=== PATIENT | female | born 1960 | race Hispanic/Latino ===

== ENCOUNTER → 2021-01-29 14:41 | Outpatient (CLI) | payer BC, SELFPAY | PROVIDERS: Visit Provider Physician Assistant | DX: N30.00 Acute cystitis without hematuria (principal) | CPT/HCPCS: 87086 ==

== ENCOUNTER → 2021-04-28 16:25 | Outpatient (CLI) | payer BC, SELFPAY | PROVIDERS: PCP Registered Nurse; Referring Provider Registered Nurse; Visit Provider Registered Nurse | DX: N39.0 Urinary tract infection, site not specified (principal); R10.2 Pelvic and perineal pain | CPT/HCPCS: 87086 ==

== ENCOUNTER → 2021-05-12 08:28 | Outpatient (CLI) | payer BC, SELFPAY ==
[2021-05-12 09:40] LABS: Add Manual Diff / Slide Review NO; Basophils Absolute Auto 0 /uL (0-100); Basophils Percent Auto 1.2 % (0-2); Eosinophils Absolute Auto 100 /uL (0-450); Eosinophils Percent Auto 3.4 % (2-4); Hematocrit 38.8 % (36-46); Hemoglobin 13.2 g/dL (12.0-16.0); Lymphocytes Absolute Auto 1900 /uL (1100-4500); Lymphocytes Percent Auto 47.2 % (25-40); Mean Corpuscular Hemoglobin 31.6 PG (26-34); Mean Corpuscular Volume 92.7 fL (80-100); Monocytes Absolute Auto 300 /uL (0-900); Monocytes Percent Auto 6.6 % (3-14); Neutrophils Absolute Auto 1700 /uL (1500-7000); Neutrophils Percent Auto 41.6 % (50-75); Platelet Count 241 X10^3/uL (150-400); Red Blood Cell Count 4.18 X10^6/uL (4.0-5.2); Red Cell Distribution Width 13.3 % (11.6-14.8)
[2021-05-12 09:54] LABS: Alanine Aminotransferase 41 IU/L (<35); Albumin 4.1 g/dL (3.5-5.0); Albumin Globulin Ratio 1.5 (1.0-2.8); Alkaline Phosphatase 67 U/L (38-126); Aspartate Aminotransferase 40 IU/L (14-36); BUN Creatinine Ratio 14.1 (6-22); Bilirubin Total 0.3 mg/dL (0.2-1.3); Blood Urea Nitrogen 10 mg/dL (7-17); Calcium 9.5 mg/dL (8.4-10.2); Carbon Dioxide 30 mmol/L (22-32); Chloride 105 mmol/L (98-107); Cholesterol 241 mg/dL (140-199); Estimated Glomerular Filt Rate > 60.0 mL/min (>60); Globulin 2.8 g/dL (1.7-4.1); Glucose 88 mg/dL (80-110); HDL Cholesterol 83 mg/dL (40-60); HEMOLYSIS < 15 (0-50); LDL Cholesterol Calculated 147 mg/dL (<100); Potassium 4.1 mmol/L (3.4-5.1); Sodium 139 mmol/L (137-145); Total Protein 6.9 g/dL (6.3-8.2); Triglycerides 56 mg/dL (35-150)
[2021-05-12 11:45] LABS: Appearance Urine UA CLEAR; Bilirubin Urine UA NEGATIVE (NEGATIVE); Color Urine UA YELLOW; Glucose Urine UA NEGATIVE (Negative); Ketones Urine UA NEGATIVE (NEGATIVE); Leukocyte Esterase Urine UA NEGATIVE (NEGATIVE); Nitrite Urine UA NEGATIVE (Negative); Occult Blood Urine UA NEGATIVE (Negative); Protein Urine UA NEGATIVE (Negative); Specific Gravity Urine UA 1.015 (1.000-1.035); Urobilinogen Urine UA 0.2 E.U./dL (0.2)
[2021-05-12 11:48] LABS: pH Urine UA 7.5 (4.5-8.0)
== END ==
PROVIDERS: PCP Registered Nurse; Referring Provider Registered Nurse; Visit Provider Registered Nurse
DX: Z00.00 Encounter for general adult medical examination without abnormal findings (principal); E78.5 Hyperlipidemia, unspecified; Z87.440 Personal history of urinary (tract) infections; R10.2 Pelvic and perineal pain; N30.00 Acute cystitis without hematuria
CPT/HCPCS: 36415; 80053; 80061; 81003; 85025

== ENCOUNTER → 2021-10-16 10:59 | Outpatient (CLI) | payer BC, SELFPAY ==
--- NOTE | 2021-10-16 | DI.US.S_ITS ---
PROCEDURE: US PELVIC COMPLETE INDICATIONS: Postmenopausal bleeding TECHNIQUE: Real-time scanning was performed of the pelvic organs, with image documentation. Additional endovaginal scanning was necessary due to incomplete visualization of the adnexal and endometrial structures by transabdominal scanning. COMPARISON: None. FINDINGS: Uterus: Uterus is normal in size at 6.1 x 2.5 cm. The myometrium is homogeneous. The endometrium measures 2.9 mm combined thickness. Endometrial mass slightly irregular margins without evidence of polyp. Ovaries: The right ovary measures 1.7 x 1.2 x 1.7 cm. The left ovary measures 1.7 x 1.0 x 1.4 cm. The ovaries have a normal sonographic appearance. 0.9 x 0.8 x 1.0 centimeter simple right adnexal cyst. Less than 12 follicles can be seen in each ovary. No adnexal masses are seen. Other: No pathologic free abdominal or pelvic fluid. IMPRESSION: 1. No endometrial thickening or endometrial mass. Endometrium has slightly irregular margins without discrete polyp. 2. Left ovary sonographically normal. 3. 0.9 x 0.8 x 1.0 centimeter right ovarian simple cyst. Dictated by: Alyce Raymond MD, PhD on 10/23/2021 at 15:39 on 10/23/2021 at 15:25 We strive to produce accurate, complete, and clear reports of imaging services. To assist us in improving patient care, this report was composed using standard report templates and voice recognition software. Therefore, it may contain abnormal punctuation, misrecognitions, insertions and/or omissions. Occasional wrong-word or sound-alike substitutions may occur. Though we review the report and make efforts to correct it, we do recommend that the report be read carefully in proper context to recognize any text inaccuracies. Approved by: Alyce Raymond MD, PhD on 10/23/2021 at 15:39
== END ==
PROVIDERS: PCP Student in an Organized Health Care Education/Training Program; Referring Provider Student in an Organized Health Care Education/Training Program; Visit Provider Student in an Organized Health Care Education/Training Program
DX: N95.0 Postmenopausal bleeding (principal); N83.291 Other ovarian cyst, right side
CPT/HCPCS: 76830; 76856

== ENCOUNTER → 2022-01-11 16:16 | Outpatient (CLI) | payer OTHER, SELFPAY ==
[2022-01-11 17:50] LABS: COVID19 -Nasal RAPID Negative (Negative)
== END ==
PROVIDERS: PCP Student in an Organized Health Care Education/Training Program; Visit Provider Obstetrics & Gynecology
DX: Z01.812 Encounter for preprocedural laboratory examination (principal); Z20.822 Contact with and (suspected) exposure to COVID-19
CPT/HCPCS: 87635

== ENCOUNTER 2022-01-12 08:38 | Day surgery (SDC) | payer OTHER, SELFPAY ==
[2022-01-09 10:25] VITALS: BMI 28.5
--- NOTE | 2022-01-12 | PATH_ITS ---
[facility] Accession Number: [id number] . 01 Material submitted: . PART A: endometrium - ENDOMETRIAL POLYP PART B: endometrium - ENDOMETRIAL CURETTINGS . 02 Diagnosis: A. Endometrial Polyp, Excision: Consistent with endometrial polyp. Negative for atypical hyperplasia or malignancy. . B. Endometrium, Curettage: Scant superficial strips of endocervical, endometrial and squamous epithelium; please see comment. No evidence of atypical hyperplasia or malignancy. [facility] 01/17/2022 1735 Local . 02 Comment: B. The histologic findings are suggestive of endometrial atrophy. That said, if clinical suspicion for an endometrial neoplasm persists, a repeat biopsy may be contributory. . 02 Electronically signed: . Fidel Love MD, PhD, Pathologist NPI- [id number] . 01 Gross description: . Part A: ENDOMETRIAL POLYP: Received in formalin is 1 fragment(s) of pichardo, soft tissue measuring 0.6 x 0.5 x 0.3 cm submitted entirely in 1 cassette(s) Part B: ENDOMETRIAL CURETTINGS: Received in formalin are minute fragments of mucoid and hemorrhagic material measuring 0.1 x 0.1 x 0.1 cm in aggregate. Submitted in toto in 1 cassette. /KIRSTEN 01/16/2022 2225 Local . 02 Pathologist provided ICD-10: N95.0 . 02 CPT . 539644, [id number] Specimen Comment: A courtesy copy of this report has been sent to [phone] Performed at: 01 [facility] [address] [facility], [place], [place] [id number] MD Demetrio Morelos MD Phone: [phone] Performed at: 02 [facility] [place] [id number] [place] [id number] MD Karolina Nayak MD Phone: [phone]
--- NOTE | 2022-01-12 09:03 | PM.PREOP ---
Pre-operative Note COVID-19 COVID-19 status: Negative Result date/Date tested (Pos, Neg/Pending): 01/11/22 Criteria for continued procedure: Non-surgical alternatives not available or appropriate per current SOC Interval Note History & Physical reviewed/Exam performed by Physician: Yes Changes to H&P: No
[2022-01-12 09:06] VITALS: BP 141/72; PULSE 48; RESP 14; TEMP 36.5; O2SAT 99
[2022-01-12 09:08] VITALS: BMI 28.5
--- NOTE | 2022-01-12 09:13 | SUR.OPER ---
Lithotomy on padded OR bed, head on pillow, arms secured on padded arm boards at <90 degrees abduction. Legs secured in padded yellow fins stirrups.
[2022-01-12] MEDS: LACTATED RINGERS 1,000 ML 100 ML IV (09:17)
[2022-01-12 10:19] VITALS: BP 83/44; PULSE 47; RESP 10; TEMP 36.3; O2SAT 95
--- NOTE | 2022-01-12 10:22 | SUR.PHASEI ---
Received to PACU after general anesthesia. Oral airway in place. Brief chin lift required. O2 sats maintained. Report from Dr Balderas and circulating RN. Oral airway removed at 1020.
[2022-01-12 10:24] VITALS: BP 113/59; PULSE 57; RESP 10; O2SAT 97
[2022-01-12 10:29] VITALS: BP 127/67; PULSE 59; RESP 16; O2SAT 98
[2022-01-12 10:34] VITALS: BP 135/74; PULSE 67; RESP 16; TEMP 36.2; O2SAT 99
--- NOTE | 2022-01-12 10:41 | PM.GYNOP.1 ---
Operative Date/Time/Diagnoses Date of procedure: 01/12/22 Time of procedure: 09:45 Pre-op diagnosis: abnormal uterine bleeding Post-op diagnosis: same Procedure & Clinicians Procedure: Procedures Operation Date: 01/12/22 09:45 Actual Procedure Side Surgeon p Diagnostic Hysteroscopy W/D&C Valeria Aviles MD Indications: persistent postmenopausal bleeding Surgeon: Valeria Aviles Anesthesia Type: Sedation Operative Notes Findings: normal vulva, vagina, and cervix. Small polyp on posterior wall of endometrial cavity, endometrium appears otherwise atrophic. Specimen(s): endometrial curettings and endometrial polyp Blood products transfused: none Procedure in detail: After informed consent was obtained, the patient was taken to the operating room where IV sedation was obtained. She was prepped and draped in the usual sterile fashion in the dorsal lithotomy position, with the bladder drained via straight catheterization. A speculum was placed in the patient's vagina and the cervix visualized and grasped with a single toothed tenaculum. Hegar dilators were used to dilate the cervix to 7mm with gentle pressure, and the diagnostic hysteroscope was advanced through the cervix with gentle pressure. Sterile saline was infused and used to dilate the endometrial cavity, and a small polyp was noted on the posterior wall of the cavity. The hysteroscope was removed, this polyp was removed with polyp forceps gently advanced into the endometrial cavity, and the hysteroscope replaced to confirm that the polyp was removed in its entirety. The hysteroscope was again removed and a gentle curettage performed. The tenaculum was removed with spontaneous hemostasis noted. The speculum was removed from the vagina, and the patient tolerated the procedure well and was taken to PACU in stable condition. During timeout, it was noted that the patient had received a dose of 2g of Ancef during positioning and prep that had not been ordered. The patient has no drug allergies and tolerated the medication well, though it was not indicated. This was disclosed to the patient prior to discharge. IVF: 400ccs LR UOP: 200ccs via straight cath Fluid deficit: 350ccs NS EBL: minimal Complications: none Post-operative Condition: stable Disposition: PACU Plan for aftercare: Routine postop care
[2022-01-12 10:45] VITALS: BP 137/74; PULSE 55; RESP 16; TEMP 36.1; O2SAT 100
--- NOTE | 2022-01-12 11:09 | SUR.PHASEII ---
Pt had no drainage on her pad at discharge and Dr. Aviles in to see pt. Pt to be discharged with .
== END 2022-01-12 11:13 | disposition home or self-care (01) ==
PROVIDERS: PCP Student in an Organized Health Care Education/Training Program; Referring Provider Obstetrics & Gynecology; Visit Provider Obstetrics & Gynecology
PROC: 0UDB8ZZ Extraction of Endometrium, Via Natural or Artificial Opening Endoscopic (ICD-10-PCS; CPT 58558; principal; 2022-01-12 09:45)
DX: N84.0 Polyp of corpus uteri (principal)
CPT/HCPCS: 58558; 82962; J1100; J1885; J2405; J2704; J3010

== ENCOUNTER → 2022-01-22 09:29 | Outpatient (CLI) | payer OTHER, SELFPAY ==
--- NOTE | 2022-01-22 | DI.MG.S_ITS ---
UNILATERAL RIGHT DIGITAL DIAGNOSTIC MAMMOGRAM 3D/2D WITH ADDITIONAL VIEWS: 01/22/2022 CLINICAL: Additional evaluation requested from prior study. Comparison is made to exam dated: 11/09/2021 mammogram - [facility]. The tissue of right breast is heterogeneously dense. This may lower the sensitivity of mammography. There is an oval focal asymmetry in the right breast at 12 o'clock in the retroareolar region. This is less prominent and decreased in size and may represent ductal ectasia. There also is a 0.9 cm oval equal density mass with coarse calcifications in the right breast at 3 o'clock posterior depth. This is seen in additional views. No other significant masses or calcifications are seen in the breast. IMPRESSION: INCOMPLETE: NEEDS ADDITIONAL IMAGING EVALUATION The focal asymmetry in the right breast at 12 o'clock in the retroareolar regionmay represent ductal ectasia but remains indeterminate. An ultrasound is recommended. The 0.9 cm oval equal density mass in the right breast at 3 o'clock posterior depth resembles a degenerating fibroadenoma and is indeterminate. An ultrasound is recommended. Findings and recommendations were conveyed to the patient during today's evaluation. This exam was interpreted at Station ID: [id number]. NOTE: For mammograms, a report in lay terms will be sent to the patient. Approximately 15% of breast malignancies will not be visualized mammographically. In the management of a palpable breast mass, a negative mammogram must not discourage biopsy of a clinically suspicious lesion. Electronically Signed By: Abiodun Howell M.D. aty/:01/22/2022 10:52:07 ACR BI-RADS Category 0: Incomplete [id number]
== END ==
PROVIDERS: PCP Student in an Organized Health Care Education/Training Program; Referring Provider Student in an Organized Health Care Education/Training Program; Visit Provider Student in an Organized Health Care Education/Training Program
DX: R92.8 Other abnormal and inconclusive findings on diagnostic imaging of breast (principal); N64.89 Other specified disorders of breast
CPT/HCPCS: 77065; G0279

== ENCOUNTER → 2022-02-14 13:35 | Outpatient (CLI) | payer OTHER, SELFPAY ==
--- NOTE | 2022-02-14 | DI.US.S_ITS ---
LIMITED ULTRASOUND OF RIGHT BREAST: 02/14/2022 CLINICAL: Patient returns today to evaluate a focal asymmetry in the right breast. Comparison is made to exams dated: 01/22/2022 mammogram - [facility], 11/09/2021 mammogram - [facility], 11/01/2020 mammogram, and 01/26/2019 mammogram - [facility]. Color flow ultrasound of the right breast 3 o'clock and 12 o'clock regions was performed. Cavazos scale images of the real-time examination were reviewed. There is a benign 1.1 cm x 1 cm x 0.6 cm oval mass with a circumscribed margin in the right breast at 3 o'clock posterior depth 9 cm from the nipple. This oval mass is hypoechoic. This correlates with mammography findings. There are related calcifications. Since the screening exam from 11/09/2021, prior exams have become available for comparison dated 11/01/2020 and 01/26/2019. This mass is stable in size dating back to the prior exam from 2018, and is therefore considered benign. There also is a benign dilated duct in the right breast at 12 o'clock in the retroareolar region. This correlates with mammography findings. Color flow imaging demonstrates that there is no vascularity present. This finding does not appear significantly changed mammographically dating back to the prior exam from 2019. IMPRESSION: BENIGN There is no sonographic evidence of malignancy. The 1.1 cm x 1 cm x 0.6 cm oval mass in the right breast at 3 o'clock posterior depth most likely is a fibroadenoma and is benign. The dilated duct in the right breast at 12 o'clock in the retroareolar region is consistent with duct ectasia and is benign. Return to annual mammogram screening schedule is recommended. This exam was interpreted at Station ID: [id number]. Electronically Signed By: Jass back/alexandrea:02/14/2022 16:27:29 letter sent: Normal Exam Ultrasound BI-RADS: 2 Benign
== END ==
PROVIDERS: PCP Student in an Organized Health Care Education/Training Program; Referring Provider Student in an Organized Health Care Education/Training Program; Visit Provider Student in an Organized Health Care Education/Training Program
DX: R92.8 Other abnormal and inconclusive findings on diagnostic imaging of breast (principal); N63.15 Unspecified lump in the right breast, overlapping quadrants
CPT/HCPCS: 76642

== ENCOUNTER → 2022-03-28 13:21 | Outpatient (CLI) | payer OTHER, SELFPAY ==
[2022-03-28 14:37] LABS: COVID19 -Nasal RAPID Negative (Negative)
== END ==
PROVIDERS: PCP Student in an Organized Health Care Education/Training Program; Visit Provider Family Medicine Sleep Medicine
DX: Z20.822 Contact with and (suspected) exposure to COVID-19 (principal)
CPT/HCPCS: 87635; C9803

== ENCOUNTER → 2022-03-30 12:52 | Outpatient (CLI) | payer OTHER, SELFPAY ==
[2022-03-30 14:08] LABS: Add Manual Diff / Slide Review NO; Basophils Absolute Auto 100 /uL (0-100); Basophils Percent Auto 1.2 % (0-2); Eosinophils Absolute Auto 0 /uL (0-450); Hemoglobin 13.6 g/dL (12.0-16.0); Lymphocytes Absolute Auto 2500 /uL (1100-4500); Lymphocytes Percent Auto 54.1 % (25-40); Mean Corpuscular HGB Conc 33.9 % (30-36); Mean Corpuscular Hemoglobin 31.7 PG (26-34); Mean Corpuscular Volume 93.6 fL (80-100); Monocytes Absolute Auto 300 /uL (0-900); Monocytes Percent Auto 6.7 % (3-14); Neutrophils Absolute Auto 1700 /uL (1500-7000); Platelet Count 259 X10^3/uL (150-400); Red Blood Cell Count 4.28 X10^6/uL (4.0-5.2); Red Cell Distribution Width 12.9 % (11.6-14.8); White Blood Cell Count 4.6 X10^3/uL (4.5-11.0)
[2022-03-30 14:29] LABS: Alanine Aminotransferase 40 IU/L (<35); Albumin 4.7 g/dL (3.5-5.0); Albumin Globulin Ratio 1.5 (1.0-2.8); Alkaline Phosphatase 65 U/L (38-126); Aspartate Aminotransferase 39 IU/L (14-36); BUN Creatinine Ratio 12.9 (6-22); Bilirubin Total 0.6 mg/dL (0.2-1.3); Blood Urea Nitrogen 9 mg/dL (7-17); Calcium 9.5 mg/dL (8.4-10.2); Carbon Dioxide 28 mmol/L (22-32); Chloride 105 mmol/L (98-107); Cholesterol 206 mg/dL (140-199); Estimated Glomerular Filt Rate > 60 mL/min (>60); Globulin 3.1 g/dL (1.7-4.1); HDL Cholesterol 100 mg/dL (40-60); HEMOLYSIS < 15 (0-50); LDL Cholesterol Calculated 90 mg/dL (<100); Potassium 3.7 mmol/L (3.4-5.1); Sodium 140 mmol/L (137-145); Total Protein 7.8 g/dL (6.3-8.2); Triglycerides 81 mg/dL (35-150)
[2022-03-30 16:22] LABS: Glucose 91 mg/dL (80-110)
[2022-04-03 05:05] LABS: Hep C Virus Ab w/Reflex Quant NEGATIVE s/c (NEGATIVE)
== END ==
PROVIDERS: PCP Student in an Organized Health Care Education/Training Program; Referring Provider Student in an Organized Health Care Education/Training Program; Visit Provider Student in an Organized Health Care Education/Training Program
DX: E66.9 Obesity, unspecified (principal); N95.0 Postmenopausal bleeding; Z11.59 Encounter for screening for other viral diseases; E78.5 Hyperlipidemia, unspecified; Z13.29 Encounter for screening for other suspected endocrine disorder
CPT/HCPCS: 36415; 80053; 80061; 84443; 85025; 86803

== ENCOUNTER 2022-03-30 13:10 | Day surgery (SDC) | payer OTHER, SELFPAY ==
--- NOTE | 2022-03-30 12:25 | P.HP_ITS ---
History of Present Illness History of Present Illness Date Patient Seen: 03/30/22 Chief complaint: SCREENING COLONOSCOPY Narrative: 62 year old female comes in today for consideration of a screening colonoscopy. She has had one previous colonoscopy, records not available at time of dicta tion, reportedly, had benign polyps. There have been no lower GI symptoms suggesting disease such as change in bowel habits, bleeding, abdominal pain or anemia. There's been no family history of colon cancer or colon polyps. Overall health issues have been stable, including no major cardiac events for at least 6 weeks. PCP: Dr. 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, descent. Has one child, son, he lives in [facility], is Upper Sor[place]. Grandson lives in [place]. Enjoys exercise and volunteering. Recently lost her father at age 94 on 07/11/21. 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 Mandaen telly. Patient History Medical History (Updated 01/12/22 @ 08:54 by Corie Antoine RN) delivery delivered COVID-19 virus infection (~10/2020) Pelvic pain Recent urinary tract infection UTI (urinary tract infection) Surgical History (Updated 01/12/22 @ 09:16 by Corie Antoine RN) H/O left knee surgery (~10/2021) Hx of colonoscopy Family & Social History Social History: household members spouse Tobacco & Substance use: Tobacco type cigarettes Smoking Status Former smoker alcohol intake current alcohol intake frequency a few times a week Substance Use Type does not use Meds Home Medications and Allergies Home Medications Medication Instructions Recorded Confirmed Type rosuvastatin 10 mg tablet 10 mg PO DAILY 01/11/22 03/30/22 History acetaminophen 500 mg tablet 1,000 mg PO Q6H PRN 01/12/22 03/30/22 History ibuprofen 200 mg capsule 600 mg PO Q6H PRN 01/12/22 03/30/22 History Allergies Allergy/AdvReac Type Severity Reaction Status Date / Time No Known Drug Allergies Allergy Verified 01/12/22 08:55 Review of Systems Review of Systems Narrative: All remaining ROS were reviewed and negative except as addressed. Exam Narrative Exam Narrative: GENERAL: Alert and oriented, appearing stated age and in no acute distress. HEENT: Head normocephalic/atraumatic. Extraocular movements intact. LUNGS: Clear to ausculation bilaterally, no wheezes, rhonchi or rales. CV: Normal S1 and S2 with regular rate and rhythm, no audible murmurs, rubs or gallops. ABDOMEN: Soft, non-tender, non-distended, no organomegaly. Positive bowel sounds. EXTREMITIES: No clubbing, cyanosis, or edema. NEURO: Cranial nerves II through XII grossly intact, no focal deficits. PSYCH: Alert and oriented x 3. SKIN: No concerning lesions. Assessment & Plan Assessment & Plan narrative: 1. History of colon polyps 2. Screening for colon cancer Plan for colonoscopy. The nature and character of the procedure as well as anticipated results were discussed. The possibility of not completing the procedure was also discussed. Possible complications including aspiration pneumonia, bleeding, perforation and reaction to medications either for sedation or preparation and missed lesions were discussed. Questions were answered and proceeding to the colonoscopy was elected. Informed consent signed.
--- NOTE | 2022-03-30 12:28 | PM.OP.COLON ---
Procedure Notes SCOAP/Timeout: 2:59 p.m. Procedure in detail: ENDOSCOPIST: Arianna Dia MD Sedation RN: Tatianna De Souza RN Anesthesiologist: Dr. Nion Sedation start time: 3:02 p.m. Sedation end time: 3:49 p.m. PROCEDURE: Colonoscopy INDICATIONS: 1. History of colon polyps 2. Screening for colon cancer MEDICATION: Levsin 0.125 mg sublingual given pre-op. 3 mg of Versed and 75 mcg fentanyl was then given but the patient was not able to achieve an adequate level of sedation and her heart rate fell to 37. Anesthesia was then called into the room and they gave 0.4 mg of glycopyrrolate with excellent effect. Procedure was then continued with propofol sedation. ASA CLASS: 2 CECAL WITHDRAWAL TIME: 6 minutes COMPLICATIONS: None. EXTENT OF PROCEDURE: Cecum. QUALITY OF PREP: Good with portions of liquid stool. PROCEDURE: Prior to insertion of the colonoscope, a digital rectal examination was accomplished with circumferential palpation of the distal rectal mucosa without significant findings being noted. The high-definition colonoscope was passed into the rectum in the usual fashion and advanced over to the cecum without difficulty. The ileocecal valve, appendiceal stoma, and medial wall all could be inspected and no abnormalities were seen. ASCENDING COLON: As the colonoscope was withdrawn, care was taken to expose and inspect the haustral folds and no abnormalities were seen. HEPATIC FLEXURE: Normal, no polyps, diverticula or other abnormalities. TRANSVERSE COLON: Normal, no polyps, diverticula or other abnormalities. DESCENDING COLON: Normal, no polyps, diverticula or other abnormalities. SIGMOID COLON: Normal, no polyps, diverticula or other abnormalities. RECTUM: Normal. J maneuver was produced. There was no significant perianal disease. The J maneuver was broken. The remainder of the rectum was inspected and there was no external hemorrhoid disease. The scope was withdrawn. IMPRESSION: 1. Normal colonoscopy PLAN: 1. Repeat colonoscopy in 5 years secondary to history of colon polyps. The possibility of a missed lesion including a malignancy has been discussed with the patient previously. Potential alarm symptoms have been discussed and should be reported immediately.
[2022-03-30 13:27] VITALS: BP 118/78; PULSE 60; RESP 16; TEMP 37.2; O2SAT 99; BMI 28.3
[2022-03-30] MEDS: LACTATED RINGERS 1,000 ML 200 ML IV (13:34)
[2022-03-30] MEDS: HYOSCYAMINE 0.125 MG TABLET PO (13:35)
--- NOTE | 2022-03-30 15:24 | PC.NURSE ---
colonoscopy with sedation, see flowsheet. Converted to MAC with Dr. Nino at 1522 due to pt having bradycardia after sedation. Dr. Dia requested anesthesia.
[2022-03-30] MEDS: MIDAZOLAM 5 MG/5 ML VIAL 3 MG IV (15:27)
[2022-03-30] MEDS: fentaNYL 250 MCG/5 ML INJ 75 MCG IV ×2 (15:28→15:52)
[2022-03-30 16:07] VITALS: BP 130/76; PULSE 89; RESP 16; TEMP 35.9; O2SAT 99
[2022-03-30 16:12] VITALS: BP 130/84; PULSE 72; RESP 14; O2SAT 97
[2022-03-30 16:17] VITALS: BP 148/84; PULSE 93; RESP 16; O2SAT 99
[2022-03-30 16:22] VITALS: BP 142/79; PULSE 71; RESP 16; TEMP 36; O2SAT 99
== END 2022-03-30 16:37 | disposition home or self-care (01) ==
PROVIDERS: PCP Student in an Organized Health Care Education/Training Program; Referring Provider Student in an Organized Health Care Education/Training Program; Visit Provider Student in an Organized Health Care Education/Training Program
PROC: 0DJD8ZZ Inspection of Lower Intestinal Tract, Via Natural or Artificial Opening Endoscopic (ICD-10-PCS; CPT 45378; principal; 2022-03-30 14:30)
DX: Z12.11 Encounter for screening for malignant neoplasm of colon (principal); Z86.010 Personal history of colon polyps; E66.9 Obesity, unspecified; N95.0 Postmenopausal bleeding; Z11.59 Encounter for screening for other viral diseases; E78.5 Hyperlipidemia, unspecified; Z13.29 Encounter for screening for other suspected endocrine disorder
CPT/HCPCS: 45378; 36415; 80053; 80061; 84443; 85025; 86803; J2250; J2704; J3010

== ENCOUNTER → 2022-09-20 19:15 | Outpatient (ROUT) | payer BC, SELFPAY ==
[2022-09-20 20:02] LABS: Influenza A - CEPHEID Flu A NEGATIVE (NEGATIVE); Influenza B - CEPHEID Flu B NEGATIVE (NEGATIVE); Respiratory Syncytial Virus Negative (Negative)
[2022-09-20 20:16] LABS: COVID-19 CEPHEID 4-PLEX PCR Negative (Negative)
== END ==
PROVIDERS: PCP Student in an Organized Health Care Education/Training Program; Visit Provider Registered Nurse
DX: R05.1 Acute cough (principal)
CPT/HCPCS: 0241U

== ENCOUNTER → 2023-12-06 17:38 | Outpatient (CLI) | payer OTHER, SELFPAY ==
--- NOTE | 2023-12-06 17:40 | DI.MG.S_ITS ---
BILATERAL DIGITAL SCREENING MAMMOGRAM 3D/2D WITH CAD: 12/06/2023 CLINICAL: Routine screening. Family history of breast cancer. Comparison is made to exams dated: 02/14/2022 ultrasound, 01/22/2022 mammogram - [facility], 11/09/2021 mammogram - [facility], 11/01/2020 mammogram, and 01/26/2019 mammogram - [facility]. Both breasts are heterogeneously dense, which may obscure small masses (category c / 51-75% glandular tissue). Current study was also evaluated with a Computer Aided Detection (CAD) system. There are biopsy clips in the left breast. No significant masses, calcifications, or other findings are seen in either breast. There has been no significant interval change. IMPRESSION: BENIGN There is no mammographic evidence of malignancy. A 1 year screening mammogram is recommended. Based on the Tyrer Cuzick model (a risk assessment model) the patient's lifetime risk is 17.8% and her 10 year risk is 7.9%. According to the ACR, ACS, and NCCN guidelines, an annual breast MRI exam along with mammogram is recommended if the patient's lifetime risk is 20% or greater. This exam was interpreted at Station ID: [id number]. NOTE: For mammograms, a report in lay terms will be sent to the patient. Approximately 15% of breast malignancies will not be visualized mammographically. In the management of a palpable breast mass, a negative mammogram must not discourage biopsy of a clinically suspicious lesion. Electronically Signed By: Crescencio combs/alexandrea:12/09/2023 09:18:07 letter sent: Normal Exam ACR BI-RADS Category 2: Benign Finding(s) 3342F
== END ==
LOC: MAMMO 17:40
PROVIDERS: PCP Student in an Organized Health Care Education/Training Program; Referring Provider Registered Nurse; Visit Provider Registered Nurse
DX: Z12.31 Encounter for screening mammogram for malignant neoplasm of breast (principal); Z80.3 Family history of malignant neoplasm of breast; R92.333 Mammographic heterogeneous density, bilateral breasts
CPT/HCPCS: 77063; 77067

== ENCOUNTER → 2024-02-04 12:51 | Outpatient (CLI) | payer OTHER, SELFPAY ==
--- NOTE | 2024-02-04 12:53 | DI.RAD.S_ITS ---
PROCEDURE: XR FOOT LT 2V INDICATIONS: FOOT INJURY, LEFT, INITIAL ENCOUNTER TECHNIQUE: 2 views of the foot were acquired. COMPARISON: None. FINDINGS: Bones: Mild 1st MTP joint space narrowing. No displaced fracture or dislocation. Soft tissues: Possible subcutaneous/dystrophic calcifications seen anterior to the tibia on lateral view. IMPRESSION: No acute radiographic abnormality. If there is high concern for further derangement, consider MRI evaluation. Dictated by: Crescencio Santiago M.D. on 02/04/2024 at 15:29 Approved by: Crescencio Santiago M.D. on 02/04/2024 at 15:30
== END ==
PROVIDERS: PCP Registered Nurse; Referring Provider Registered Nurse; Visit Provider Registered Nurse
DX: S99.922A Unspecified injury of left foot, initial encounter (principal); X58.XXXA Exposure to other specified factors, initial encounter
CPT/HCPCS: 73620

== ENCOUNTER 2024-03-13 16:15 | Emergency (ER) | payer OTHER, SELFPAY ==
[2024-03-13] VITALS (13 sets, daily range): BP systolic 134–147; BP diastolic 62–67; PULSE 51–59; RESP 9–33; TEMP 36.7; O2SAT 96–100; BMI 28.0
--- NOTE | 2024-03-13 16:36 | DI.RAD.S_ITS ---
PROCEDURE: XR CHEST 1V INDICATIONS: chest pain TECHNIQUE: One view of the chest was acquired. COMPARISON: None. FINDINGS: Surgical changes and devices: None. Lungs and pleura: Lungs are clear. No pleural effusions or pneumothorax. Mediastinum: Mediastinal contours appear normal. Heart size is normal. Bones and chest wall: No suspicious bony lesions. Overlying soft tissues appear unremarkable. IMPRESSION: No acute cardiopulmonary abnormality is seen. Dictated by: Victoriano Barron M.D. on 03/13/2024 at 18:46 Approved by: Victoriano Barron M.D. on 03/13/2024 at 18:46
[2024-03-13 16:46] LABS: Add Manual Diff / Slide Review NO; Basophils Absolute Auto 100 /uL (0-100); Eosinophils Absolute Auto 100 /uL (0-450); Eosinophils Percent Auto 1.8 % (2-4); Hematocrit 39.2 % (36-46); Hemoglobin 13.2 g/dL (12.0-16.0); Lymphocytes Absolute Auto 2900 /uL (1100-4500); Lymphocytes Percent Auto 46.5 % (25-40); Mean Corpuscular HGB Conc 33.8 % (30-36); Mean Corpuscular Hemoglobin 31.7 PG (26-34); Mean Corpuscular Volume 93.9 fL (80-100); Monocytes Absolute Auto 400 /uL (0-900); Monocytes Percent Auto 6.5 % (3-14); Neutrophils Absolute Auto 2800 /uL (1500-7000); Neutrophils Percent Auto 44.2 % (50-75); Platelet Count 224 X10^3/uL (150-400); Red Blood Cell Count 4.17 X10^6/uL (4.0-5.2); Red Cell Distribution Width 13.5 % (11.6-14.8); White Blood Cell Count 6.3 X10^3/uL (4.5-11.0)
[2024-03-13 17:00] LABS: PTT Partial Thromboplastin Tim 35 SECONDS (25.1-36.5)
[2024-03-13 17:02] LABS: Alanine Aminotransferase 31 IU/L (<35); Albumin 4.9 g/dL (3.5-5.0); Alkaline Phosphatase 77 U/L (38-126); Aspartate Aminotransferase 30 IU/L (14-36); BUN Creatinine Ratio 24.6 (6-22); Bilirubin Total 0.6 mg/dL (0.2-1.3); Blood Urea Nitrogen 17 mg/dL (7-17); Calcium 9.4 mg/dL (8.4-10.2); Carbon Dioxide 25 mmol/L (22-32); Chloride 109 mmol/L (98-107); Creatine Kinase 195 U/L (30-135); Estimated Glomerular Filt Rate > 60 mL/min (>60); Globulin 2.5 g/dL (1.7-4.1); Glucose 74 mg/dL (80-110); HEMOLYSIS < 15 (0-50); Lipase 167 U/L (23-300); Potassium 3.9 mmol/L (3.4-5.1); Sodium 140 mmol/L (137-145); Total Protein 7.4 g/dL (6.3-8.2)
[2024-03-13 17:14] LABS: Troponin I < 0.012 ng/mL (0.01-0.034)
[2024-03-13 17:43] LABS: Prothrombin Time 11.9 SECONDS (9.4-12.5)
--- NOTE | 2024-03-13 18:55 | ED_ITS ---
HPI - Arrhythmia/Palpitations General Chief Complaint: Arrhythmia/Palpitations Stated Complaint: Dr. Chisholm/Heart Abnormal/Oxygen Low Time Seen by Provider: 03/13/24 18:36 Source: patient Mode of arrival: Ambulatory History of Present Illness HPI narrative: 63-year-old female referred for evaluation for possible abnormal EKG, endorses recent 2 weeks of intermittent chest discomfort, sometimes worse with inspiration. She has some degree of some shortness of breath she cites since COVID infection 2018, and fall of 2022. No known coronary artery disease, but she does have risk factors of remote smoking and hyperlipidemia and family history with father and mother having MIs in their 60s and 70s. Denies history of diabetes and hypertension. No prior history of blood clots to legs or lungs, no leg pain or swelling symptoms. She has not tried any specific therapies. She has not been on any inhalers. She has not taken any aspirin. She does not take blood thinner medications. She denies fevers chills or recent change your intermittent cough that she attributes to postnasal drip allergy like symptoms. 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 Murphy of [facility]. She recalls having stress test about [address] [facility], no other or major recent cardiac testing. She presented earlier today with this chest discomfort complaint to her primary care provider, who did an EKG and seemed to be concerned about some changes. Related Data Home Medications Medication Instructions Recorded Confirmed rosuvastatin 10 mg tablet 10 mg PO DAILY 01/11/22 06/03/23 acetaminophen 500 mg tablet 1,000 mg PO Q6H PRN Pain 01/12/22 06/03/23 ibuprofen 200 mg capsule 600 mg PO Q6H PRN Pain 01/12/22 06/03/23 Previous Rx's Medication Instructions Recorded albuterol sulfate 90 mcg/actuation 2 puff inhalation Q6H PRN 03/13/24 aerosol inhaler shortness of breath or wheezing #8.5 grams Allergies Allergy/AdvReac Type Severity Reaction Status Date / Time No Known Drug Allergies Allergy Verified 06/03/23 15:34 Review of Systems Review of Systems Narrative: as per HPI Cardiovascular Comments: Anterior chest discomfort intermittent for the last couple of weeks, somewhat pleuritic component Respiratory Comments: Shortness of breath intermittent along with chest discomfort as per HPI, intermittent coughing Musculoskeletal Comments: No lower extremity edema, no calf swelling or tenderness Patient History Medical History (Updated 03/13/24 @ 19:37 by Beltran Nance MD) COVID-19 virus infection (~10/2020) delivery delivered Recent urinary tract infection Pelvic pain UTI (urinary tract infection) Surgical History (Updated 01/12/22 @ 09:16 by Corie Antoine RN) H/O left knee surgery (~10/2021) Hx of colonoscopy Social History household members: spouse Smoking Status: Former smoker alcohol intake: current Smoking Status: Former smoker alcohol intake frequency: a few times a week Substance Use Type: does not use Exam Initial Vital Signs Initial Vital Signs: Vital Signs Temperature 98.1 F 03/13/24 16:27 Pulse Rate 54 L 03/13/24 16:27 Respiratory Rate 16 03/13/24 16:27 Blood Pressure 134/63 03/13/24 16:27 Pulse Oximetry 100 03/13/24 16:27 Oxygen Delivery Method Room Air 03/13/24 16:27 Const General: cooperative HENMT Head: atraumatic Face and sinus: face symmetric Eyes Conjunctivae: conjunctivae normal Sclera: sclerae normal Neck Neck: normal visual inspection and trachea midline Chest Chest: normal inspection of the chest Resp Effort & Inspection: normal respiratory effort, able to speak in complete sentences, no respiratory distress and no use of accessory muscles Auscultation: clear to auscultation bilaterally, no rales, no rhonchi and no wheezes Cardio Rate: regular rate Rhythm: regular rhythm Heart Sounds: no click, no gallops, no murmurs and no rubs Pulses: normal peripheral pulses GI Inspection: non-distended Palpation: soft and No tender Skin General: no rashes or lesions noted Neuro General: patient alert and no focal motor deficits Extrem General: no clubbing, cyanosis or edema and no pedal edema Course Course Course Narrative: Intermittent shortness of breath and some degree of chest discomfort for the last 2 weeks or so, some degree of shortness of breath since previous COVID infections 2018 and fall, no known coronary artery disease but some risk factors of hyperlipidemia and family history and remote smoking. No recent stress testing. EKG showed some T-wave inversion lead 3, generalized flat T- waves, potassium level unremarkable on serum screening, no significant change from study done apparently from clinic earlier today, but no other comparisons available. Trial of MDI if symptoms might be pulmonary in nature. Aspirin given. BNP normal, troponin normal. Chest x-ray unremarkable. Will discuss case with her [employer] piping designer Dr. Murphy Orders Ordered: Discontinued Medications Albuterol (Albuterol Hfa Mdi 60 Puff/8 Gm Inhaler) 2 puff INH NOW ONE Stop: 03/13/24 19:00 Last Admin: 03/13/24 19:54 Dose: Not Given Documented By: NIYA Albuterol (Albuterol 2.5 Mg/3 Ml Neb (Adult)) 2.5 mg INH NOW ONE Stop: 03/13/24 19:27 Last Admin: 03/13/24 19:32 Dose: 2.5 mg Documented By: RYANF Aspirin (Aspirin 81 Mg Chew Tab) 324 mg PO NOW ONE Stop: 03/13/24 19:00 Last Admin: 03/13/24 19:28 Dose: 324 mg Documented By: NIYA Consultations Consultation #1: Phone consult with cross [facility] [employer] piping designer Dr. Reggie Young, described EKG to him, he felt patient was stable for discharge and outpatient follow-up but should be stressed, he ordered an exercise stress test to be scheduled. Vital Signs Vital signs: Vital Signs - 8 hr 03/13/24 16:27 Temperature 98.1 F Pulse Rate 54 L Respiratory Rate 16 Blood Pressure 134/63 Pulse Oximetry 100 Oxygen Delivery Method Room Air MDM - Arrhythmia/Palpitations Lab Data Attestation: I reviewed the patient's lab results. 03/13/24 16:33 03/13/24 16:33 Labs: Lab Results 03/13/24 03/13/24 Range/Units 16:33 17:13 WBC 6.3 (4.5-11.0) X10^3/uL RBC 4.17 (4.0-5.2) X10^6/uL Hgb 13.2 (12.0-16.0) g/dL Hct 39.2 (36-46) % MCV 93.9 (80-100) fL MCH 31.7 (26-34) PG MCHC 33.8 (30-36) % RDW 13.5 (11.6-14.8) % Plt Count 224 (150-400) X10^3/uL Neut % (Auto) 44.2 L (50-75) % Lymph % (Auto) 46.5 H (25-40) % [place] % (Auto) 6.5 (3-14) % Eos % (Auto) 1.8 L (2-4) % Baso % (Auto) 1.0 (0-2) % Neut # (Auto) 2800 (3479-3979) /uL Lymph # (Auto) 2900 (1358-1000) /uL [place] # (Auto) 400 (0-900) /uL Eos # (Auto) 100 (0-450) /uL Baso # (Auto) 100 (0-100) /uL PT 11.9 (9.4-12.5) SECONDS INR 1.0 (0.9-1.3) APTT 35 (25.1-36.5) SECONDS Sodium 140 (137-145) mmol/L Potassium 3.9 (3.4-5.1) mmol/L Chloride 109 H (98-107) mmol/L Carbon Dioxide 25 (22-32) mmol/L BUN 17 (7-17) mg/dL Creatinine 0.69 (0.52-1.04) mg/dL Estimated GFR > 60 (>60) mL/min BUN/Creatinine Ratio 24.6 H (6-22) Glucose 74 L (80-110) mg/dL Calcium 9.4 (8.4-10.2) mg/dL Magnesium 2.0 (1.6-2.3) mg/dL Total Bilirubin 0.6 (0.2-1.3) mg/dL AST 30 (14-36) IU/L ALT 31 (<35) IU/L Alkaline Phosphatase 77 (38-126) U/L Total Creatine Kinase 195 H (30-135) U/L Troponin I < 0.012 (0.01-0.034) ng/mL NT-Pro-B Natriuret Pep 45 (<125) pg/mL Total Protein 7.4 (6.3-8.2) g/dL Albumin 4.9 (3.5-5.0) g/dL Globulin 2.5 (1.7-4.1) g/dL Albumin/Globulin Ratio 2.0 (1.0-2.8) Lipase 167 (23-300) U/L Urine Dip Bedside Urine Glucose Negative Bedside Urine Bilirubin - Negative Bedside Urine Ketone - Negative Urine Specific [place] 1.020 Bedside Urine Occult Blood - Negative Bedside Urine pH 6.0 Bedside Urine Protein - Negative Bedside Urine Urobilinogen - Negative Bedside Urine Nitrite - Negative Bedside Urine Leukocytes - Negative Esterase ECG Data Attestation: I personally reviewed and interpreted this ECG as follows: Prior ECG tracings: available for review Interpretation: Sinus bradycardia with heart rate 56, no obvious ST segment elevation or depression changes. Flat slightly inverted T-wave lead 3, poor amplitude T- waves in general, no obvious ST segment depression or elevation changes. No change from study done apparently from clinic earlier today at 3:40 p.m.. 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 The aggregate critical care time was [35] minutes. This time is in addition to time spent performing reported procedures but includes the following: [x] Data Review and interpretation [x] Patient assessment and monitoring of vital signs [x] Documentation [x] Medication orders and management Discharge Plan Departure Patient Disposition: Home Clinical Impression: Chest pain Instructions: DI for Atypical Chest Pain Activity Restrictions/Additional Instructions: Intermittent chest discomfort and shortness of breath over the last couple of weeks, multiple cardiac risk factors of hyperlipidemia and remote smoking and family history, no recent cardiac stress testing. Chest x-ray and troponin blood testing reassuring. EKG did show some slight T-wave inversion in the inferior lead 3, no change from study earlier today, no prior study is available cardio serve system here for comparison. I described to on-call [employer] piping designer Dr. Young, covering for your regular [employer] piping designer Dr. Murphy, who felt you were able to have further evaluation as an outpatient at this time. He suggested aspirin daily. We will also try inhaler for discharge, to see if any component of your symptoms might be pulmonary in a not actually cardiac, as you mentioned you had some degree of some symptoms after previous COVID infection. Trial of albuterol inhaler while awaiting Cardiology follow-up. Dr. Young ordered an exercise stress test for you as an outpatient, you should be contacted Saturday, otherwise call office of Dr. Murphy to clarify timing and location of stress testing. Return to this/nearest emergency department for any change worsening symptoms or any concerns prior Prescriptions: New albuterol sulfate 90 mcg/actuation HFA aerosol inhaler 2 puff inhalation Q6H PRN (Reason: shortness of breath or wheezing) Qty: 8.5 0RF No Action rosuvastatin 10 mg tablet 10 mg PO DAILY Patient Comments: take 1 tablet by mouth every evening ibuprofen 200 mg Capsule 600 mg PO Q6H PRN (Reason: Pain) acetaminophen 500 mg Tablet 1,000 mg PO Q6H PRN (Reason: Pain) Referrals: Zander Murphy MD [Physician] - Yolette Prather ARNP [Primary Care Provider] - Stand Alone Forms: Patient Portal/API
[2024-03-13 19:04] LABS: NT-proBNP (BNP-Adult 18+) 45 pg/mL (<125)
[2024-03-13] MEDS: ASPIRIN 81 MG CHEW TAB 324 MG PO (19:28)
[2024-03-13] MEDS: ALBUTEROL 2.5 MG/3 ML NEB (ADULT) INH (19:32)
== END 2024-03-13 20:00 | disposition home or self-care (01) ==
PROVIDERS: Emergency Medicine; Emergency Provider Emergency Medicine; PCP Registered Nurse
DX: R07.9 Chest pain, unspecified (principal); R06.02 Shortness of breath; R00.1 Bradycardia, unspecified
CPT/HCPCS: 36415; 71045; 80053; 81003; 82550; 83690; 83735; 83880; 84484; 85025; 85610; 85730; 93005; 93010; 94640; 99284; A9270; J7613

== ENCOUNTER → 2024-03-18 07:53 | Outpatient (CLI) | payer OTHER, SELFPAY ==
--- NOTE | 2024-03-18 19:01 | DI.NM.S_ITS ---
DATE OF SERVICE: 03/18/2024 PROCEDURE: Exercise perfusion study. INDICATIONS: Chest pain, shortness of breath. CARDIAC STRESS: Patient underwent exercise stress test under the supervision of an attending staff using standard Soto protocol. She walked on Soto protocol for 9 minutes and 33 seconds, achieved maximum heart rate of 163, which was 104% of target heart rate. Normal blood pressure response. Resting blood pressure 115/82 and peak blood pressure 150/82. Baseline rhythm was sinus with mild sinus bradycardia, low-voltage complexes in chest leads. During stress, no convincing ischemic changes seen, no significant arrhythmias. No chest discomfort. Had some shortness of breath. 10.1 METS of workload. PING -47%. CONCLUSION: Exercise stress test is negative for inducible ischemia. Excellent exercise tolerance. PING -47%. Normal hemodynamic response. No anginal symptoms. No ischemic electrocardiographic changes or significant arrhythmias. Overall, low-risk exercise stress test. Adriana Mcintosh - PHOEBE/christine/NAOMIE doc#: [id number]/job#: [id number] dd: 03/18/2024 16:43:00 dt: 03/18/2024 17:36:00 DICTATING MD/COPIES TO: Michelle Edgar MD COPIES MNE: ROSA;
== END ==
PROVIDERS: PCP Registered Nurse; Referring Provider Internal Medicine Cardiovascular Disease; Visit Provider Internal Medicine Cardiovascular Disease
DX: R07.9 Chest pain, unspecified (principal); R06.02 Shortness of breath
CPT/HCPCS: 93017

== ENCOUNTER → 2024-10-05 13:06 | Outpatient (CLI) | payer OTHER, SELFPAY ==
--- NOTE | 2024-10-05 13:07 | DI.RAD.S_ITS ---
PROCEDURE: XR CHEST 2V INDICATIONS: Cough TECHNIQUE: 2 views of the chest were acquired. COMPARISON: [facility], CR, XR CHEST 1V, 03/13/2024, 17:15. FINDINGS: Surgical changes and devices: None. Lungs and pleura: Lungs are clear. No pleural effusions or pneumothorax. Mediastinum: Mediastinal contours are normal. Heart size is normal. Bones and chest wall: No suspicious bony abnormalities. Soft tissues appear unremarkable. IMPRESSION: No acute cardiopulmonary pathology. Dictated by: Butch Miguel M.D. on 10/05/2024 at 13:48 Approved by: Butch Miguel M.D. on 10/05/2024 at 13:48
== END ==
PROVIDERS: PCP Registered Nurse; Referring Provider Nurse Practitioner Family; Visit Provider Nurse Practitioner Family
DX: R05.9 Cough, unspecified (principal)
CPT/HCPCS: 71046

== ENCOUNTER → 2024-10-05 13:25 | Outpatient (CLI) | payer OTHER, SELFPAY | PROVIDERS: PCP Registered Nurse; Visit Provider Nurse Practitioner Family | DX: R05.1 Acute cough (principal) | CPT/HCPCS: 71046; 87070 ==

== ENCOUNTER → 2024-10-16 13:15 | Outpatient (CLI) | payer OTHER, SELFPAY ==
--- NOTE | 2024-10-16 | DI.RAD.S_ITS ---
PROCEDURE: XR CHEST 2V INDICATIONS: cough, pneumonia TECHNIQUE: 2 views of the chest were acquired. COMPARISON: [facility], CR, XR CHEST 2V, 10/05/2024, 13:04. FINDINGS: Surgical changes and devices: None. Lungs and pleura: Lungs are clear. No pleural effusions or pneumothorax. Mediastinum: Mediastinal contours are normal. Heart size is normal. Bones and chest wall: No suspicious bony abnormalities. Soft tissues appear unremarkable. IMPRESSION: No acute cardiopulmonary abnormality is seen. Dictated by: Farhat Molina M.D. on 10/16/2024 at 14:09 Approved by: Farhat Molina M.D. on 10/16/2024 at 14:10
== END ==
LOC: RAD 13:17
PROVIDERS: PCP Registered Nurse; Referring Provider Registered Nurse; Visit Provider Registered Nurse
DX: J18.9 Pneumonia, unspecified organism (principal); R05.9 Cough, unspecified
CPT/HCPCS: 71046

== ENCOUNTER → 2024-10-20 15:17 | Outpatient (CLI) | payer OTHER, SELFPAY | LOC: RESP 15:17 | PROVIDERS: PCP Registered Nurse; Referring Provider Registered Nurse; Visit Provider Registered Nurse | DX: R06.00 Dyspnea, unspecified (principal); R07.89 Other chest pain; F17.210 Nicotine dependence, cigarettes, uncomplicated; R94.2 Abnormal results of pulmonary function studies | CPT/HCPCS: 94060; 94726; 94729 ==